=== PATIENT | male | born 1985 ===

== ENCOUNTER 2019-10-30 16:07 | Outpatient (CLI) | payer OTHER | END 2019-10-30 18:00 | disposition home or self-care (01) | LOC: RAD 16:07 | DX: J11.1 Influenza due to unidentified influenza virus with other respiratory manifestations (principal); J44.9 Chronic obstructive pulmonary disease, unspecified ==

== ENCOUNTER 2021-10-04 11:46 | Outpatient (CLI) | payer OTHER | END 2021-10-04 11:48 | disposition home or self-care (01) | LOC: NUCLEAR 11:46 | PROVIDERS: ATTEND Internal Medicine Hematology & Oncology | DX: I87.2 Venous insufficiency (chronic) (peripheral) (principal) ==

== ENCOUNTER 2023-06-05 09:59 | Outpatient (CLI) | payer OTHER | END 2023-06-05 10:06 | disposition home or self-care (01) | LOC: RAD 09:59 | PROVIDERS: ATTEND Internal Medicine Endocrinology, Diabetes & Metabolism | DX: M06.1 Adult-onset Still's disease (principal); M04.1 Periodic fever syndromes ==